=== PATIENT | male | born 1965 | race African-American/Black ===

== ENCOUNTER 2017-01-31 18:43 | Inpatient (IN) ==
[2017-01-31 19:14] LABS: MANUAL DIFF NEEDED? NO
[2017-01-31 19:16] LABS: BASO% 0.2 % (0.0-0.8); EOS# 0.02 X1000 (0.0-0.7); EOS% 0.2 % (0.0-10.0); HEMATOCRIT 43.8 % (42.0-52.0); HEMOGLOBIN 15.2 g/dL (14.0-18.0); IMM GRAN# 0.02 X1000 (0.0-0.04); IMM GRAN% 0.2 % (0.0-0.5); LYMPH# 2.45 X1000 (1.2-3.4); LYMPH% 28.7 % (20.5-51.1); MCHC 34.7 g/dL (33-37); MCV 89.4 FL (81-99); MONO# 0.92 X1000 (0.11-0.59); MONO% 10.8 % (1.7-9.3); MPV 11.3 FL (7.4-10.4); NEUT% 59.9 % (42.2-75.2); PLT 200 X1000 (130-400)
[2017-01-31 19:36] LABS: ALBUMIN 4.7 g/dL (3.5-5.0); CALCIUM 9.9 mg/dL (8.8-10.2); POTASSIUM 3.7 mmol/L (3.5-5.1); TOTAL BILIRUBIN 0.67 mg/dL (0.20-1.00)
[2017-01-31] MEDS ORDERED: NS 1,000 ML IV ONE ×2 (20:45→22:51)
[2017-01-31 20:49] LABS: URINE CULTURE NEEDED? NO; URINE SOURCE CLEAN CATCH
[2017-01-31 20:53] LABS: BILIRUBIN URINE NEGATIVE (NEGATIVE); BLOOD URINE TRACE (NEGATIVE); COLOR YELLOW; GLUCOSE URINE NEGATIVE (NEGATIVE); LEUKOCYTES URINE NEGATIVE (NEGATIVE); NITRITE URINE NEGATIVE (NEGATIVE); PH URINE 5.5; PROTEIN URINE 100 mg/dL (NEGATIVE); TURBIDITY URINE HAZY (CLEAR); UROBILINOGEN URINE NORMAL (NORMAL)
[2017-01-31 20:54] LABS: URINE MICRO REVIEW NEEDED? YES
[2017-01-31 21:08] LABS: UR EPITHELIAL CELLS <10 /HPF (<10); URINE BACTERIA NEGATIVE /HPF; URINE RBC <10 /HPF (<10); URINE WBC <10 /HPF (<10)
[2017-01-31] MEDS ORDERED: ZOFRAN IV ONE (21:35)
[2017-01-31 22:20] LABS: CK INDEX 0.6 (0.0-2.5); CK-MB 8.64 ng/mL (0.0-5.0)
--- NOTE | 2017-01-31 22:55 | PROVIDER DOCUMENTATION ---
This chart was entered by Jesús Urrutia Scribe, acting as scribe for Serjio Cedeno PA. HPI-Abdominal Pain/GI Problem - General Chief Complaint: Abdominal Pain Stated Complaint: FOOD POISONING, VOMITING, FEVER Time Seen by Provider: 01/31/17 20:27 Source: patient Allergies/Adverse Reactions: Patient Allergies Allergy/AdvReac Type Severity Reaction Status Date / Time No Known Allergies Allergy Verified 01/31/17 21:59 Home Medications: Home Medication List Medication Instructions Recorded Confirmed Last Taken Type Unobtainable [Home Meds 01/31/17 01/31/17 Unknown History Unobtainable] - History of Present Illness-ABD Nature of Presenting Problems: Pt is a 51 yom who presents to ER with CC of abdominal pain and generalized aches. Pt reports that he was outside doing yardwork all day and did not have anything to drink throughout the day. Pt reports that at approximately 2000, he became nauseas, diaphoretic, and generalized cramping. Pt denies any hx of renal problems. Abdominal Pain Onset Location: reports: other (generalized) Pain Radiation: reports: no radiation Quality of Pain: reports: cramping Severity in ED: reports: moderate Onset/Duration: reports: 4-6 hours ago Timing: reports: still present Associated Symptoms: reports: diaphoresis, dizziness, fatigue, muscle aches, nausea, weakness, trouble walking. denies: anxiety, arm pain, back/neck pain, chest pain, constipation, cough, diarrhea, EENT symptoms, fever/chills, genitourinary problems, headaches, heartburn, joint pain, loss of appetite, malaise, sinus congestion/drainage, rash, seizure, shortness of breath, sensory/ motor loss, pain with inspiration, swelling/mass in abdomen, syncope, vomiting Last BM: unsure Dark Stools Present?: reports: none noticed Rectal Bleeding: reports: none Rectal Pain: reports: none Emesis Description: reports: none Review of Systems - Adult - REVIEW OF SYSTEMS - ADULT Constitutional: reports: jojo. denies: chills, fever, night sweats, weight gain, weight loss Eyes: reports: no symptoms reported Ears, Nose, Mouth & Throat: reports: no symptoms reported Cardiovascular: reports: no symptoms reported Respiratory: reports: no symptoms reported Gastrointestinal: reports: abdominal pain, nausea. denies: hematemesis, constipation, diarrhea, difficulty swallowing, frequent heartburn, poor appetite , rectal bleeding, vomiting Genitourinary: reports: no symptoms reported Musculoskeletal: reports: joint pain, muscle aches, muscle weakness. denies: bone pain, back pain, frequent leg cramps, joint swelling, neck pain Integumentary: reports: no symptoms reported Neurological: reports: no symptoms reported Psychiatric: reports: no symptoms reported Endocrine: reports: no symptoms reported Hematologic/Lymphatic: reports: no symptoms reported Allergic/Immunologic: reports: no symptoms reported All Other Systems: Reviewed and Negative Past History - Adult - PAST MEDICAL HISTORY-ADULT Review of Records: reports: Nursing Assessment Review, Medications Reviewed - IMMUNIZATION STATUS Childhood Immunizations: See Nurse Assessment Flu Vaccine: See Nurse Assessment Physical Exam-General - PHYSICAL EXAM-ADULT Initial Vital Signs Reviewed: Yes - CONSTITUTIONAL General Appearance: appears well, alert, mild distress. negative: no apparent distress - EYES Eyes: PERRL/EOMI, pink conjunctivae, fundi clear, no AV nicking - HEAD, EARS, NOSE, MOUTH & THROAT HENMT: normocephalic/atraumatic, moist mucous membranes, normal ENT inspection, TMs normal, pharynx normal - NECK Neck: non-tender, full range of motion, supple, normal inspection. negative: C- spine tenderness, limited range of motion, lymphadenopathy - RESPIRATORY Respiratory: chest non-tender, lungs clear, normal breath sounds, no pleuratic chest pain, no respiratory distress, no accessory muscle use. negative: crackles, rales, rhonchi, wheezing - CARDIOVASCULAR Cardiovascular: normal peripheral pulses, regular rate, rhythm. negative: bradycardia, tachycardia, irregularly irregular - GASTROINTESTINAL (ABDOMEN) Abdominal Exam: normal bowel sounds, non tender, soft, no organomegaly, no pulsatile mass. negative: abnormal bowel sounds, tenderness - MUSCULOSKELETAL Extremity: normal range of motion, non-tender, normal gait, normal inspection, no pedal edema, no calf tenderness, normal capillary refill. negative: deformity, erythema, inflammation, swelling, tenderness - SKIN Integumentary: normal color, normal turgor, warm/dry, other (generalized aches/ cramps). negative: abrasion(s), diaphoresis, ecchymosis, erythema, laceration(s ), swelling, tenderness, warm - NEUROLOGIC Neurologic: healthcare management consultant II-XII nml as tested, grossly normal, no motor/sensory deficits . negative: facial droop, focal weakness, motor weakness, sensory deficit - PSYCHIATRIC Psych/Mental Status: normal thought content, normal thought process, oriented x 3, anxious, disheveled. negative: normal mood/affect Progress - PLAN OF CARE/RESULTS Progress/Plan/Lab Results: Vital Signs - 8 hr 01/31/17 18:47 Temperature 97.7 F Pulse Rate 115 H Respiratory Rate 18 Blood Pressure 117/74 O2 Sat by Pulse Oximetry 99 Laboratory Results - last 24 hr 01/31/17 01/31/17 01/31/17 18:54 18:54 18:54 WBC 8.54 RBC 4.90 Hgb 15.2 Hct 43.8 MCV 89.4 MCH 31.0 MCHC 34.7 RDW Std Deviation 13.7 Plt Count 200 MPV 11.3 H Immature Gran % (Auto) 0.2 Neut % (Auto) 59.9 Lymph % (Auto) 28.7 Mower % (Auto) 10.8 H Eos % (Auto) 0.2 Baso % (Auto) 0.2 Immature Gran # (Auto) 0.02 Neut # (Auto) 5.11 Lymph # (Auto) 2.45 Mower # (Auto) 0.92 H Eos # (Auto) 0.02 Baso # (Auto) 0.02 Sodium 139 Potassium 3.7 Chloride 97 L Carbon Dioxide 19 L Anion Gap 23 BUN 25 H Creatinine 2.3 H Estimated GFR/1.73 m2 37 BUN/Creatinine Ratio 11 Glucose 140 H Calculated Osmolality 284 Calcium 9.9 Total Bilirubin 0.67 AST 41 H ALT 32 Alkaline Phosphatase 94 Creatine Kinase 1458 H Creatine Kinase Index 0.6 CK-MB (CK-2) 8.64 H Troponin T Total Protein 8.0 Albumin 4.7 Globulin 3.3 Albumin/Globulin Ratio 1.4 Amylase 93 Lipase 56 Urine Source Urine Color Urine Turbidity Urine pH Ur Specific [place] Urine Protein Ur Glucose (Stick) Ur Ketones (Stick) Urine Blood Urine Nitrite Urine Bilirubin Urobilinogen Dipstick Urine Leukocytes Urine WBC (Auto) Urine RBC (Auto) U Epithel Cells (Auto) Urine Bacteria (Auto) Urine Crystals Small Round Cells Urine Casts Urine Yeast-like Cells 01/31/17 01/31/17 18:54 20:32 WBC RBC Hgb Hct MCV MCH MCHC RDW Std Deviation Plt Count MPV Immature Gran % (Auto) Neut % (Auto) Lymph % (Auto) Mower % (Auto) Eos % (Auto) Baso % (Auto) Immature Gran # (Auto) Neut # (Auto) Lymph # (Auto) Mower # (Auto) Eos # (Auto) Baso # (Auto) Sodium Potassium Chloride Carbon Dioxide Anion Gap BUN Creatinine Estimated GFR/1.73 m2 BUN/Creatinine Ratio Glucose Calculated Osmolality Calcium Total Bilirubin AST ALT Alkaline Phosphatase Creatine Kinase Creatine Kinase Index CK-MB (CK-2) Troponin T < 0.010 Total Protein Albumin Globulin Albumin/Globulin Ratio Amylase Lipase Urine Source CLEAN CATCH Urine Color YELLOW Urine Turbidity HAZY Urine pH 5.5 Ur Specific [place] 1.020 Urine Protein 100 A Ur Glucose (Stick) NEGATIVE Ur Ketones (Stick) NEGATIVE Urine Blood TRACE A Urine Nitrite NEGATIVE Urine Bilirubin NEGATIVE Urobilinogen Dipstick NORMAL Urine Leukocytes NEGATIVE Urine WBC (Auto) <10 Urine RBC (Auto) <10 U Epithel Cells (Auto) <10 Urine Bacteria (Auto) NEGATIVE Urine Crystals Not Reportable Small Round Cells Not Reportable Urine Casts Not Reportable Urine Yeast-like Cells Not Reportable Orders Category Date Time Status Saline Loc DIRECTED Care 01/31/17 18:50 Active NPO Diet 01/31/17 18:50 Active AMYLASE [CHEM] Stat Lab 01/31/17 18:54 Completed CBC WITH ELECTRONIC DIFF [HEME] Stat Lab 01/31/17 18:54 Completed CK PROFILE [SP CHEM] Stat Lab 01/31/17 18:54 Completed COMPREHENSIVE METABOLIC PANEL [CHEM] Stat Lab 01/31/17 18:54 Completed LIPASE [CHEM] Stat Lab 01/31/17 18:54 Completed TROPONIN T Stat Lab 01/31/17 18:54 Completed URINALYSIS W/POSS RFLX CULT-1 [URINALYSIS] Stat Lab 01/31/17 20:32 Completed URINE MANUAL MICROSCOPIC [URINALYSIS] Stat Lab 01/31/17 20:32 Completed 0.9% Sodium Chloride Inj [Ns] 1,000 ml Med 01/31/17 20:45 Discontinued IV 999 mls/hr Ondansetron [Zofran] Med 01/31/17 21:35 Discontinued 4 mg IV NOW ONE EKG [EKG] Stat Ther 01/31/17 20:44 Ordered Result Diagrams: 01/31/17 18:54 01/31/17 18:54 - CONSULTS/PCP/HOSPITALIST Notification #1 *Consult/PCP/Hospitalist*: Dr. Snyder Time Discussed: 22:54 Consult Disposition: Admit Departure - Departure Time of Disposition Decision: 22:55 DIAGNOSIS: Acute kidney injury, Dehydration, moderate Disposition: ADMITTED INPATIENT 09 Certified Medical Emergency: Emergent Condition: Stable Referrals and Follow-Ups: Toi Solomon [Primary Care Provider] - Attestation - Physician/ DAQUAN Attestation Patient care was provided by Advanced Practice Provider:: Yes Advanced Practice Provider:: Serjio Cedeno Advanced Practice Provider documentation review:: The Mid-level provider documentation, treatment plan and medical decision making was reviewed by the physician who agrees with all treatment and medical decision making by the MLP. This chart was documented by the indicated scribe, (Jesús Urrutia Scribe) and accurately reflects the services I performed and decisions made by , Serjio Cedeno PA, as attested by the provider's signature.
[2017-02-01] MEDS ORDERED: TYLENOL PO PRN (00:47)
[2017-02-01] MEDS ORDERED: ZOFRAN IV PRN (00:47)
--- NOTE | 2017-02-01 01:05 | HISTORY AND PHYSICAL ---
PRIMARY CARE PROVIDER: Dr. Toi Solomon. CHIEF COMPLAINT: Nausea, vomiting, and muscle aches and cramps. HISTORY OF PRESENT ILLNESS: Mr. Saeed is a 51-year-old -[place] male with a past medical history of hypertension and diabetes mellitus type 2. He reports that since approximately 8:00 a.m. this morning to 1:00 p.m. he worked outside in his yard doing yard work and cleaning his gutters and was up on the roof of his house as well. He reports that he was out in the sun and heat and did not drink a lot of fluids during this time either. The patient reports that approximately 1:00 p.m. he began to have muscle aches and cramps. He stated that he stopped working outside and returned inside and rested though began having some slight upper abdominal pain and had approximately 5 to 6 episodes of nausea and vomiting. Three of those were prior to his arrival to the ER and approximately 2 to 3 were after his arrival to the ER. Patient denies any previous history of any renal problems. He denies any dizziness, lightheadedness, or visual disturbances. He denies any chest pain, shortness of breath, or abdominal pain at this time. He denies hematemesis, hematochezia, or melena. He denies any change in the amount, frequency, or color of his urine and also denies any dysuria. He states that since arriving to the ER and receiving some IV fluids that he does feel better. Upon evaluation in the ER, patient's lab results did show an acute kidney injury with his BUN at 25, creatinine 2.3, with a GFR of 37. The patient does not have any previous laboratory results for us to compare these findings. At this time, we will admit him for fluid volume depletion and acute kidney injury. REVIEW OF SYSTEMS: A 12-point review of systems was conducted with the patient and all were negative except for pertinent positives mentioned in above HPI. PAST MEDICAL HISTORY: 1. Hypertension. 2. Diabetes mellitus. 3. 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 4. Neck pain secondary to a work injury for which the patient states that he has a slipped disk in his cervical area. PAST SURGICAL HISTORY: A left shoulder surgery for rotator cuff repair. SOCIAL HISTORY: The patient denies any alcohol use though states that he smokes 1/3 pack of cigarettes a day and occasionally uses marijuana. FAMILY HISTORY: He reports that his mother secondary to a stroke. His father has a history of hypertension and he has 1 sister that has a history of hypertension and diabetes mellitus as well. ALLERGIES: The patient reports no known allergies. HOME MEDICATIONS: The patient's home medication list is unable to be reconciled at this time. His is returning home to retrieve his medication bottles though he does report that he takes 3 different blood pressure medications as well as metformin and Neurontin. DIAGNOSTIC DATA: Laboratory results: White blood cell count 8.5, hemoglobin 15.2, hematocrit 43.8, platelet count is 200. Sodium 139, potassium 3.7, chloride is 97, bicarbonate 19, BUN is 25, creatinine 2.3 with a GFR of 37, glucose 140, calcium 9.9, magnesium 2. Liver function tests within normal limits except for AST is slightly elevated at 41. CK is 1458. CK index is 0.6. CK- MB of 8.64. Troponin was less than 0.01. Amylase 93. Lipase 66. Urinalysis is positive for protein and trace blood and is otherwise within normal limits, is negative for ketones, nitrites, or leukocytes. EKG has been ordered and we are awaiting this to be done at this time. PHYSICAL EXAMINATION: VITAL SIGNS: Temperature 97.7, heart rate 115, respirations 18, blood pressure 117/74, oxygen saturation is 99% room air. GENERAL: Mr. Saeed is a pleasant 51-year-old -[place] male who was resting comfortably in the ER stretcher, was in no acute distress. HEENT: Head is atraumatic, normocephalic. Pupils are equal, round, reactive to light, are 3 mm bilaterally and brisk. Oral mucosa is moist. Oropharynx is clear. NECK: Supple. Trachea midline. CARDIOVASCULAR: Patient has a normal S1, S2. No murmurs, gallops, or rubs appreciated with a slightly tachycardic rate that is regular. LUNGS: Lung sounds are clear to auscultation in bilateral full patel. ABDOMEN: Soft, nontender, nondistended. Bowel sounds are present in all 4 quadrants, are normoactive. No CVA tenderness noted upon palpation. MUSCULOSKELETAL: Patient has good range of motion in all extremities and joints. EXTREMITIES: No cyanosis, clubbing or edema noted. Pulse, motor, and sensory were intact in all extremities. Pedal pulses were 3 plus bilaterally. INTEGUMENTARY: The patient's skin color is normal for his race, is warm, dry, and intact. The patient has adequate skin turgor at this time. No lesions or sores noted. NEUROLOGICAL: Patient is alert and oriented times 3. Cranial nerves II through XII are grossly intact. ASSESSMENT AND PLAN: 1. Fluid volume depletion. The patient was given initial normal saline bolus in the ER. We will repeat this and then place his fluids to be normal saline at 175 mL per hour times 2 bags and we will reevaluate this after his morning labs. 2. Acute kidney injury. This is likely secondary to fluid volume depletion. We will continue with treatment as mentioned for number 1 and we will avoid nephrotoxic medications and continue to follow. 3. Hypertension. At this time, the patient's blood pressure is within normal limits. We will await for his to bring his medication bottles to reconcile his home medications and continue his appropriate blood pressure medications. 4. Diabetes mellitus type 2. We will hold the patient's metformin at this time and we will place him on a low-dose sliding scale lispro insulin. The patient will be placed on the medical floor with telemetry. He will have vital signs q.6 hours. DVT prophylaxis provided with SCDs. He will be placed on a diabetic diet. We will repeat a CBC, CMP, and a CK profile in the morning. Further orders and recommendations pending hospital course, diagnostic studies, and physician evaluation. Dictated by REBECCA Buchanan for Bora Snyder MD Seen and examined by me, plan reviewed by me. cc: MD Toi Miller Jr, MD MTDD
--- NOTE | 2017-02-01 05:20 | EKG Report ---
Test Performed on : 01/31/2017 11:32:59 PM Test Reason : dehydrated Blood Pressure : / mmHG Vent. Rate : 080 BPM Atrial Rate : 080 BPM P-R Int : 118 ms QRS Dur : 086 ms QT Int : 398 ms P-R-T Axes : 060 -24 -12 degrees QTc Int : 459 ms Normal sinus rhythm. Nonspecific ST and T wave abnormality Abnormal ECG No previous ECGs available Unconfirmed Result
[2017-02-01 06:35] LABS: MANUAL DIFF NEEDED? NO
[2017-02-01 06:40] LABS: BASO% 0.1 % (0.0-0.8); EOS% 0.9 % (0.0-10.0); HEMATOCRIT 38.8 % (42.0-52.0); HEMOGLOBIN 13.2 g/dL (14.0-18.0); IMM GRAN# 0.03 X1000 (0.0-0.04); IMM GRAN% 0.3 % (0.0-0.5); LYMPH% 19.9 % (20.5-51.1); MCH 30.6 PG (27-31); MONO# 1.07 X1000 (0.11-0.59); MONO% 9.7 % (1.7-9.3); MPV 11.1 FL (7.4-10.4); NEUT% 69.1 % (42.2-75.2); PLT 192 X1000 (130-400); RBC 4.31 XMIL (4.7-6.1)
[2017-02-01 06:52] LABS: AGAP 14; BUN 21 mg/dL (8-22); CALCIUM 8.8 mg/dL (8.8-10.2); CHLORIDE 102 mmol/L (98-107); COSMO 282; POTASSIUM 3.4 mmol/L (3.5-5.1); SODIUM 139 mmol/L (136-145); TCO2 23 mmol/L (25-35)
[2017-02-01 06:59] LABS: CK PROFILE 1844 U/L (24-204)
[2017-02-01] MEDS: NS 1,000 ML IV SCH ×4 (07:08→18:30)
[2017-02-01 07:53] LABS: CK INDEX 0.4 (0.0-2.5); CK-MB 8.05 ng/mL (0.0-5.0)
[2017-02-01 10:08] LABS: HEMOGLOBIN A1C 5.5 % (4.8-6.0)
--- NOTE | 2017-02-01 14:04 | PROGRESS NOTE ---
DATE: 02/01/2017 SUBJECTIVE: Today, Mr. Saeed referred to be doing fine. He is actually wanting to go home. Denies any more vomiting. Briefly, Mr. Saeed referred that he was doing some work in his yard. He thinks he might have overworked himself. He started feeling his muscles cramping up and he threw up a few times, and had to come into the emergency department, where he was found to have acute kidney injury with creatine kinase elevated, consistent with rhabdomyolysis. OBJECTIVE: Vital Signs: Blood pressure is 155/91, pulse of 90, respirations 16, temperature 97.8 degrees. General: Mr. Saeed is a 51-year-old male. He is in bed, not in any distress. HEENT: Mucosa pink and moist. Anicteric. Acyanotic. Neck: Supple. Chest: Good air entry bilaterally. No crepitations. No rhonchi. Cardiovascular: Regular rate and rhythm. Abdomen: Soft, nontender. Bowel sounds are present. Extremities: No pedal edema. Central Nervous System: Patient is alert and oriented x4. There is no focal neurological deficit. LABORATORY DATA: WBC is 11.08, hemoglobin is 13.2, platelet count of 192,000. Sodium is 139, potassium is 3.4, chloride is 102, bicarbonate is 23. Creatinine is down to 1.4. Creatine kinase went up slightly to 1844. ASSESSMENT: 1. Rhabdomyolysis. 2. Acute kidney injury. 3. Fluid depletion. 4. History of hypertension. 5. Diabetes mellitus. In general, I think Mr. Saeed is doing a whole lot better. Creatinine is improving; however, his CK went up instead of going down. We will continue with aggressive hydration and repeat this for tomorrow morning. If it is improving, then we will discharge him. Want to make sure there is not an upward trend and rather a downward trend, so that we will feel more comfortable letting him go. I did explain that to him and he voiced understanding. We will continue with the current rate of IV fluids. cc: Oswald Cordova MD
[2017-02-01] MEDS: HUMALOG SUBQ SCH ×3 (17:04→18:29)
[2017-02-02] MEDS: HUMALOG SUBQ SCH ×2 (05:10→06:39)
[2017-02-02] MEDS: NS 1,000 ML IV SCH (05:10)
[2017-02-02 07:06] LABS: AGAP 13; BUN 14 mg/dL (8-22); CALCIUM 9.1 mg/dL (8.8-10.2); CHLORIDE 104 mmol/L (98-107); COSMO 280; MAGNESIUM 1.9 mg/dL (1.5-2.7); POTASSIUM 4.3 mmol/L (3.5-5.1); SODIUM 140 mmol/L (136-145); TCO2 23 mmol/L (25-35)
[2017-02-02 08:00] VITALS: BP 163/100
--- NOTE | 2017-02-02 22:47 | DISCHARGE SUMMARY ---
ADMISSION DATE: 02/01/2017 DISCHARGE DATE: 02/02/2017 DISPOSITION: Home. The patient actually left AMA. ADMISSION DIAGNOSIS: 1. Fluid depletion. 2. Acute kidney injury. 3. Hypertension. 4. Diabetes mellitus. DISCHARGE DIAGNOSES: 1. Rhabdomyolysis. 2. Acute kidney injury secondary to rhabdomyolysis and fluid depletion. 3. Dehydration. 4. Diabetes mellitus with a presenting A1c of 5.5. 5. Hypertension controlled. DISCHARGE MEDICATION: None since patient left AMA. PRESENTING COMPLAINT: Was muscle cramps, nausea and vomiting. HISTORY OF PRESENTING COMPLAINT: Mr. Saeed is a 51-year-old male who apparently according to him he did too much of work in his garden and on the day of presentation he started having cramps and nausea and vomiting. He came in. He was found to have creatinine of 2.3 and creatine kinase level of 1458. Patient was admitted for fluid depletion, JOANNA. During the hospital stay patient was very well hydrated, I saw him yesterday, his kidney functions were trending down and there was the hope I will discharge him today. His creatine kinase was however elevated, there was a just a little concern if there is any inflammatory myopathy so inflammatory markers were sent, they were all negative except the SOILA which was still pending at the time patient left AMA. I think in general patient was feeling a whole lot better and his renal function has normalized so he would have been okay to go home with advice just to adequately hydrate himself. However he left AMA early this morning and I was notified by the nurses. I did try to reach the patient on the number that is listed on his record which is but he would not answer. TIME SPENT FOR DISCHARGE: Was 32 minutes. cc: Oswald Cordova MD
== END 2017-02-02 12:03 | disposition left against medical advice (07) ==
LOC: 4N 18:43 → ED 18:43 → OBSVTOIN 02-01 00:31 → SUATTDRO 02-01 00:31
PROVIDERS: ATTEND Internal Medicine